=== PATIENT | female | born 2000 | race Caucasian/White ===

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

== ENCOUNTER 2021-01-26 12:30 | Outpatient (CLI) | payer OTHER | END 2021-01-26 12:31 | disposition home or self-care (01) | LOC: COV 12:30 | PROVIDERS: ATTEND Family Medicine | DX: R68.83 Chills (without fever) (principal); R07.0 Pain in throat; J34.89 Other specified disorders of nose and nasal sinuses; Z20.822 Contact with and (suspected) exposure to COVID-19 ==

== ENCOUNTER 2021-06-10 17:01 | Outpatient (CLI) | payer OTHER | END 2021-06-10 17:02 | disposition home or self-care (01) | LOC: COV 17:01 | PROVIDERS: ATTEND Family Medicine | DX: R50.9 Fever, unspecified (principal); R53.83 Other fatigue; R19.7 Diarrhea, unspecified; R11.2 Nausea with vomiting, unspecified; Z20.822 Contact with and (suspected) exposure to COVID-19 ==